=== PATIENT | male | born 1960 | race Caucasian/White ===

== ENCOUNTER 2022-02-24 07:57 | Outpatient (CLI) | payer OTHER, SELFPAY ==
--- NOTE | ~2022-02-24 | CT_ITS ---
EXAMINATION: CT sinus wo con EXAM DATE: 02/24/2022 08:20 INDICATION: Acute Recurrent Max Sinusitis . TECHNIQUE: Spiral CT of the sinuses was acquired in the axial plane. Coronal and sagittal reformatte d images were also reviewed. The dose-length product (DLP) for this examination was 254.74 mGy-cm. Iterative reconstruction (ASIR) was used as dose reduction technique. There is no prior study for co mparison. FINDINGS: The sinuses are normally developed. The sinuses are well aerated. The ostiomeatal unit s are patent. There is no sinus wall thickening. Left-sided joya bullosa. There is moderate ri ghtward nasal septal deviation. Congenitally absent left mastoid air cells. The right mastoid air ce lls and the middle ear is are well aerated. External auditory canals are patent. The orbits and vi sualized soft tissues are unremarkable. IMPRESSION: 1. Moderate rightward nasal septal deviation. 2. Clear sinuses. Reviewed, dictated and finalized at location A.
== END 2022-02-24 07:58 | disposition home or self-care (01) ==
PROVIDERS: Visit Provider Otolaryngology
DX: J01.01 Acute recurrent maxillary sinusitis (principal); J34.2 Deviated nasal septum
CPT/HCPCS: 70486